=== PATIENT | male | born 1965 | race African-American/Black ===

== ENCOUNTER 2018-04-28 07:38 | Emergency (ER) | payer MEDICAID, OTHER ==
[~2018-04-28] VITALS: Ht 165.1 cm; Wt 70.3 kg
[~2018-04-28 07:38] MED LIST: ASPI-247; IBUP800T24; NORCO
[2018-04-28 08:07] VITALS: BP 141/70
[2018-04-28] MEDS ORDERED: KETOROLAC TROMETH 60MG/2ML VIAL IM ONE (08:30)
== END 2018-04-28 09:44 | disposition home or self-care (01) ==
LOC: ER 07:38
DX: G89.29 Other chronic pain (principal); M54.5 Low back pain; K21.9 Gastro-esophageal reflux disease without esophagitis; I10 Essential (primary) hypertension; I25.2 Old myocardial infarction; Z79.82 Long term (current) use of aspirin
CPT/HCPCS: 72100; 99284; J1885

== ENCOUNTER 2018-10-16 07:50 | Emergency (ER) | payer MEDICAID ==
[~2018-10-16] VITALS: Ht 162.6 cm; Wt 74.8 kg
[2018-10-16 08:47] VITALS: BP 137/73
[2018-10-16] MEDS ORDERED: cefTRIAXone SOD 1,000 MG VL IM ONE (09:30)
== END 2018-10-16 10:06 | disposition home or self-care (01) ==
LOC: ER 07:50
DX: I88.9 Nonspecific lymphadenitis, unspecified (principal); H66.91 Otitis media, unspecified, right ear; J03.90 Acute tonsillitis, unspecified; Z79.82 Long term (current) use of aspirin
CPT/HCPCS: 72040; 93005; 96372; 99283; J0696

== ENCOUNTER 2018-10-28 16:20 | Emergency (ER) | payer MEDICAID ==
[~2018-10-28] VITALS: Ht 162.6 cm; Wt 72.6 kg
[2018-10-28 16:38] VITALS: BP 145/62
== END 2018-10-28 19:23 | disposition home or self-care (01) ==
LOC: ER 16:25
DX: M62.838 Other muscle spasm (principal); I65.23 Occlusion and stenosis of bilateral carotid arteries; K21.9 Gastro-esophageal reflux disease without esophagitis; E78.5 Hyperlipidemia, unspecified; I10 Essential (primary) hypertension; I25.2 Old myocardial infarction; F12.10 Cannabis abuse, uncomplicated; Z98.61 Coronary angioplasty status; V43.52XA Car driver injured in collision with other type car in traffic accident, initial encounter; Y93.89 Activity, other specified; Y99.8 Other external cause status; Y92.410 Unspecified street and highway as the place of occurrence of the external cause
CPT/HCPCS: 70450; 72125

== ENCOUNTER 2018-11-03 07:40 | Emergency (ER) | payer MEDICAID ==
[~2018-11-03] VITALS: Ht 162.6 cm; Wt 72.6 kg
[2018-11-03 08:52] VITALS: BP 144/83
== END 2018-11-03 09:41 | disposition home or self-care (01) ==
LOC: ER 07:40
DX: I70.212 Atherosclerosis of native arteries of extremities with intermittent claudication, left leg (principal); I70.221 Atherosclerosis of native arteries of extremities with rest pain, right leg; M54.5 Low back pain; K21.9 Gastro-esophageal reflux disease without esophagitis; E78.5 Hyperlipidemia, unspecified; I10 Essential (primary) hypertension; I25.2 Old myocardial infarction; F12.90 Cannabis use, unspecified, uncomplicated; Z79.82 Long term (current) use of aspirin; Z98.61 Coronary angioplasty status; Z87.891 Personal history of nicotine dependence
CPT/HCPCS: 72100

== ENCOUNTER 2019-05-03 11:08 | Inpatient (IN) | payer MEDICAID | END 2019-05-08 13:10 | disposition home or self-care (01) | LOC: ER 11:08 → TELE 11:09 → TELE-CENTR 19:39 | PROC: 037K34Z Dilation of Right Internal Carotid Artery with Drug-eluting Intraluminal Device, Percutaneous Approach (ICD-10-PCS; principal; ~2019-05-03) | PROC: B3181ZZ Fluoroscopy of Bilateral Internal Carotid Arteries using Low Osmolar Contrast (ICD-10-PCS; ~2019-05-03) | DX: I65.21 Occlusion and stenosis of right carotid artery (principal); I63.9 Cerebral infarction, unspecified; I13.0 Hypertensive heart and chronic kidney disease with heart failure and stage 1 through stage 4 chronic kidney disease, or unspecified chronic kidney disease; I50.22 Chronic systolic (congestive) heart failure; N18.3 Chronic kidney disease, stage 3 (moderate); I48.91 Unspecified atrial fibrillation; I25.10 Atherosclerotic heart disease of native coronary artery without angina pectoris; H54.7 Unspecified visual loss; Z95.5 Presence of coronary angioplasty implant and graft; J44.9 Chronic obstructive pulmonary disease, unspecified; D63.1 Anemia in chronic kidney disease ==

== ENCOUNTER 2019-06-25 15:18 | Inpatient (IN) | payer MEDICAID ==
[~2019-06-25] VITALS: Ht 160 cm; Wt 69.5 kg
[~2019-06-25 15:18] MED LIST changes: -ASPI-247; +ASPI-404 PO; +ATOR80TA PO; +CARV12.544 PO; +CLOP75TA41 PO; +FURO20TA3 PO; -IBUP800T24; +LISI10TA6 PO; -NORCO; +POTA10TA51 PO; +TAMS0.4C36 PO
[2019-06-25 16:01] LABS: Basophils # (auto) 0 uL; Eosinophils # (auto) 0.1 uL; Lymphocytes # (auto) 2.1 uL; Monocytes # (auto) 0.4 uL; Neutrophils # (auto) 3.3 uL; Nucleated Red Blood Cells % 0.2 %
[2019-06-25 16:03] LABS: Basophils % (auto) 0.8 % (0.0-2.0); Eosinophils % (auto) 2.2 % (0.0-7.0); Hematocrit 17.9 % (41.0-53.0); Lymphocytes % (auto) 34.6 % (10.0-50.0); Mean Corpuscular Hemoglobin 23.2 pg (28.0-32.0); Mean Corpuscular Hgb Conc. 30.9 g/dL (32.0-36.0); Monocytes % (auto) 7.4 % (0.0-12.0); Platelet Count (auto) 313 10^3/uL (140-450); Red Blood Cells 2.39 10^6/uL (4.5-5.90)
[2019-06-25 16:08] LABS: Red Cell Distribution Width 22.8 % (11.8-14.3)
[2019-06-25 16:12] LABS: Albumin 3.8 g/dL (3.4-5.0); BUN/Creatinine Ratio 11.2; Calcium 8.7 mg/dL (8.5-10.1); Hemoglobin 5.5 g/dL (13.5-17.5); Potassium 4.4 mmol/L (3.5-5.1)
[2019-06-25 16:15] LABS: Bilirubin, Total 0.5 mg/dL (0.2-1.0); Total Protein 7.8 g/dL (6.4-8.2)
[2019-06-25] MEDS ORDERED: OCTREOTIDE ACETATE 100 MCG/ML VL SUBCUT ONE (19:30)
[2019-06-25] MEDS ORDERED: SODIUM CHLORIDE 0.9% 1,000 ML IV ONE (19:30)
[2019-06-25 21:03] LABS: Urine Bacteria NONE SEEN /hpf (None Seen); Urine Blood Negative /uL (Negative); Urine Mucus FEW (None Seen); Urine Specific Gravity 1.014 (1.001-1.035); Urine WBC <1 /hpf (0 - 3)
[2019-06-25 22:14] VITALS: BP 82/39
[2019-06-25 22:38] VITALS: BP 84/36
[2019-06-25 22:43] LABS: INR 1.01 (0.9-1.15)
[2019-06-26] VITALS (14 sets, daily range): BP systolic 93–125; BP diastolic 41–147
[2019-06-26] MEDS ORDERED: PANTOPRAZOLE 40 MG/10 ML VIAL INJ IV ONE (00:30)
[2019-06-26] MEDS ORDERED: ONDANSETRON HCL 4 MG/2 ML VIAL IV PRN (00:30)
[2019-06-26] MEDS ORDERED: MORPHINE SULF INJ 2 MG/ML SYRINGE 1ML IV PRN (01:00)
[2019-06-26] MEDS ORDERED: NITROGLYCERIN 0.4 MG SL TAB SL PRN (01:00)
[2019-06-26] MEDS: D5W/SOD CHLO 0.9% 1,000 ML IV SCH ×2 (01:27→13:50)
[2019-06-26] MEDS ORDERED: OCTREOTIDE ACETATE 500 MCG/ML VL ONE (01:32)
[2019-06-26] MEDS: OCTREOTIDE ACETATE 500 MCG in SODIUM CHL 0.9% 99 ML IV SCH ×3 (01:41→21:17)
--- NOTE | 2019-06-26 02:15 | NUR ---
Telemetry admit from ER JAQUELIN THOMPSON admitted to Telemetry unit after SBAR received. Patient oriented to EDDY SPARKS, primary RN, unit, room, bed, and unit policies regarding patient care and visiting hours. Patient now on continuous telemetry monitoring, tele box #[id number] and telemetry reading on arrival to unit is sinus rhythm 88 BPM. Patient placed on bedside oxygen, weighed by bedscale and encouraged to call if they need something. All questions and concerns addressed, patient verbalized understanding.
[2019-06-26] MEDS ORDERED: AMLO5TAB15 PO (02:52)
[2019-06-26] MEDS ORDERED: HYDR12.56 PO (02:52)
--- NOTE | 2019-06-26 07:10 | NUR ---
Opening Shift Note Assumed care of patient, awake and alert. No S/S of distress/SOB or pain. Instructed on POC and to call for assist PRN, will continue to monitor for changes Q1hr and PRN. Bed set in lowest locked position with side rails up x 2 for safety and call light within reach.
[2019-06-26] MEDS ORDERED: PANTOPRAZOLE 40 MG/10 ML VIAL INJ IV SCH (10:00)
[2019-06-26 10:04] LABS: Hemoglobin 10.4 g/dL (13.5-17.5)
[2019-06-26 10:05] LABS: Hematocrit 32.3 % (41.0-53.0)
--- NOTE | 2019-06-26 11:20 | NUR ---
MD at bedside Dr. Carissa JUAN updated pt on POC, pt verbalized understanding.
--- NOTE | 2019-06-26 11:40 | NUR ---
at bedside , Dr. Amaya at bedside. Updated pt on POC, all questions answered from pt.
--- NOTE | 2019-06-26 19:08 | NUR ---
Endorsed care to NOC RN.
--- NOTE | 2019-06-26 19:26 | NUR ---
Opening Shift Note Assumed care of patient, awake and alert x 4. No S/S of distress/SOB. Bed is in lowest position and locked. Call light within reach. Board updated. Tele box number matches monitor and leads are in correct placement. Instructed on POC and to call for assist PRN, will continue to monitor for changes Q1hr and PRN.
[2019-06-27] MEDS: D5W/SOD CHLO 0.9% 1,000 ML IV SCH (03:24)
[2019-06-27 05:34] VITALS: BP 104/47
[2019-06-27] MEDS: OCTREOTIDE ACETATE 500 MCG in SODIUM CHL 0.9% 99 ML IV SCH (05:51)
[2019-06-27 07:31] LABS: Basophils # (auto) 0.1 uL; Basophils % (auto) 1.2 % (0.0-2.0); Eosinophils # (auto) 0.2 uL; Eosinophils % (auto) 2.4 % (0.0-7.0); Hematocrit 31.3 % (41.0-53.0); Hemoglobin 9.9 g/dL (13.5-17.5); Lymphocytes # (auto) 1.3 uL; Lymphocytes % (auto) 19.5 % (10.0-50.0); Mean Corpuscular Hemoglobin 26.6 pg (28.0-32.0); Mean Corpuscular Hgb Conc. 31.5 g/dL (32.0-36.0); Mean Corpuscular Volume 84.4 fL (80.0-100.0); Monocytes # (auto) 0.5 uL; Monocytes % (auto) 7.8 % (0.0-12.0); Neutrophils # (auto) 4.6 uL; Neutrophils % (auto) 69.1 % (37.0-80.0); Nucleated Red Blood Cells % 0.2 %; Platelet Count (auto) 221 10^3/uL (140-450); Red Blood Cells 3.71 10^6/uL (4.5-5.90); White Blood Cell 6.6 10^3/uL (4.4-10.8)
[2019-06-27 07:34] LABS: Red Cell Distribution Width 20.7 % (11.8-14.3)
[2019-06-27 07:45] LABS: Calcium 8.3 mg/dL (8.5-10.1); Potassium 4.7 mmol/L (3.5-5.1)
[2019-06-27 07:48] LABS: BUN/Creatinine Ratio 10.5; Bilirubin, Total 1.2 mg/dL (0.2-1.0); Total Protein 6.8 g/dL (6.4-8.2)
[2019-06-27 08:30] VITALS: BP_SYST 109; BP_SYST 117; BP_DIAS 64
[2019-06-27 12:30] VITALS: BP 106/64
--- NOTE | 2019-06-27 19:15 | NUR ---
OPENING NOTE Pt is awake and alert x4. No S/S of SOB or distress at this time. Bed is locked and in lowest position. Bed rails are up x2 and call light is within reach. POC has been discussed with Pt and Pt verbalized understanding. Pt instructed to notify nurse for assistance when needed.
[2019-06-27 22:13] VITALS: BP 101/49
[2019-06-27] MEDS: PANTOPRAZOLE 40 MG TAB PO SCH (23:09)
[2019-06-28 04:54] VITALS: BP 116/65
[2019-06-28 06:24] LABS: Basophils # (auto) 0 uL; Basophils % (auto) 0.5 % (0.0-2.0); Eosinophils # (auto) 0.2 uL; Eosinophils % (auto) 2.2 % (0.0-7.0); Hematocrit 31.8 % (41.0-53.0); Hemoglobin 10.4 g/dL (13.5-17.5); Lymphocytes # (auto) 1.5 uL; Lymphocytes % (auto) 20.4 % (10.0-50.0); Mean Corpuscular Hgb Conc. 32.8 g/dL (32.0-36.0); Mean Corpuscular Volume 82.5 fL (80.0-100.0); Monocytes # (auto) 0.5 uL; Monocytes % (auto) 6.8 % (0.0-12.0); Neutrophils # (auto) 5.3 uL; Neutrophils % (auto) 70.1 % (37.0-80.0); Nucleated Red Blood Cells % 0.1 %; Platelet Count (auto) 226 10^3/uL (140-450); Red Blood Cells 3.85 10^6/uL (4.5-5.90); Red Cell Distribution Width 21.1 % (11.8-14.3); White Blood Cell 7.6 10^3/uL (4.4-10.8)
[2019-06-28 06:42] LABS: Calcium 8.5 mg/dL (8.5-10.1); Potassium 4.2 mmol/L (3.5-5.1)
[2019-06-28 06:50] LABS: BUN/Creatinine Ratio 8.9
[2019-06-28 08:30] VITALS: BP 116/64
[2019-06-28] MEDS: PANTOPRAZOLE 40 MG TAB PO SCH (08:31)
[2019-06-28 12:37] VITALS: BP 116/64
[2019-06-28 13:14] VITALS: BP 124/70
--- NOTE | 2019-06-28 13:50 | NUR ---
DISCHARGE NOTE PATIENT ALERT AND ORIENTED X4 ALL DISCHARGE INSTRUCTIONS GIVEN ALL QUESTIONS AND CONCERNS ADDRESSED/ANSWERED. PATIENT VERBALIZED UNDERSTANDING. IV REMOVED USING [employer] TECHNIQUE CATHETER INTACT PATIENT TOLERATED WELL. TELEBOX REMOVED CLEANED AND SENT TO ICU. PATIENT ASSISTED TO PERSONAL VEHICLE USING A WHEELCHAIR. PATIENT DENIES ALL PAIN, SOB OR DISTRESS.
== END 2019-06-28 13:45 | disposition home or self-care (01) | DRG 253 ==
LOC: ER 15:28 → TELE 15:29 → TELE-WESTW 06-26 02:04
PROVIDERS: ADMIT Nurse Practitioner; ATTEND Internal Medicine
PROC: 30233N1 Transfusion of Nonautologous Red Blood Cells into Peripheral Vein, Percutaneous Approach (ICD-10-PCS; principal; 2019-06-25)
DX: K92.2 Gastrointestinal hemorrhage, unspecified (principal); N17.0 Acute kidney failure with tubular necrosis; I95.9 Hypotension, unspecified; I50.22 Chronic systolic (congestive) heart failure; I48.91 Unspecified atrial fibrillation; Z86.73 Personal history of transient ischemic attack (TIA), and cerebral infarction without residual deficits; I25.10 Atherosclerotic heart disease of native coronary artery without angina pectoris; Z95.5 Presence of coronary angioplasty implant and graft; D50.0 Iron deficiency anemia secondary to blood loss (chronic); H54.61 Unqualified visual loss, right eye, normal vision left eye; I65.29 Occlusion and stenosis of unspecified carotid artery; K59.00 Constipation, unspecified; Z79.82 Long term (current) use of aspirin; Z79.899 Other long term (current) drug therapy
CPT/HCPCS: 36415; 74176; 80048; 80053; 81001; 82270; 85014; 85018; 85025; 85384; 85610; 86850; 86900; 86901; 86920; 93005; C9113; G0378; J7042

== ENCOUNTER 2019-09-27 08:13 | Emergency (ER) | payer MEDICAID ==
[~2019-09-27] VITALS: Ht 157.5 cm; Wt 78.5 kg
[~2019-09-27 08:13] MED LIST changes: +AMLO5TAB15 PO; +HYDR12.56 PO
[2019-09-27 08:23] VITALS: BP 108/42
[2019-09-27] MEDS ORDERED: HYDROcodone-ACET 10/325MG TAB PO ONE (09:15)
== END 2019-09-27 09:49 | disposition home or self-care (01) ==
LOC: ER 08:13
DX: M54.5 Low back pain (principal); I48.91 Unspecified atrial fibrillation; I13.0 Hypertensive heart and chronic kidney disease with heart failure and stage 1 through stage 4 chronic kidney disease, or unspecified chronic kidney disease; N18.9 Chronic kidney disease, unspecified; I50.9 Heart failure, unspecified; I25.10 Atherosclerotic heart disease of native coronary artery without angina pectoris; J44.9 Chronic obstructive pulmonary disease, unspecified; K21.9 Gastro-esophageal reflux disease without esophagitis; E78.5 Hyperlipidemia, unspecified; I25.2 Old myocardial infarction
CPT/HCPCS: 72100

== ENCOUNTER 2020-02-18 14:29 | Emergency (ER) | payer MEDICAID ==
[~2020-02-18] VITALS: Ht 160 cm; Wt 77.1 kg
[~2020-02-18 14:29] MED LIST changes: -ASPI-404 PO; +ASPI-543 PO; +LISI-648 PO; -LISI10TA6 PO
[2020-02-18 14:43] VITALS: BP 108/64
== END 2020-02-18 16:23 | disposition home or self-care (01) ==
LOC: ER 14:29
DX: K59.00 Constipation, unspecified (principal); L29.0 Pruritus ani; I13.0 Hypertensive heart and chronic kidney disease with heart failure and stage 1 through stage 4 chronic kidney disease, or unspecified chronic kidney disease; N18.9 Chronic kidney disease, unspecified; I50.9 Heart failure, unspecified; K21.9 Gastro-esophageal reflux disease without esophagitis; J44.9 Chronic obstructive pulmonary disease, unspecified; Z86.73 Personal history of transient ischemic attack (TIA), and cerebral infarction without residual deficits; Z98.61 Coronary angioplasty status; Z87.891 Personal history of nicotine dependence
CPT/HCPCS: 74022

== ENCOUNTER 2020-04-20 15:45 | Inpatient (IN) | payer MEDICAID ==
[2020-04-20] VITALS (8 sets, daily range): BP systolic 84–97; BP diastolic 41–70
[~2020-04-20] VITALS: Ht 160 cm; Wt 76.7 kg
[2020-04-20 16:30] LABS: Basophils # (auto) 0 10 ^3/uL (0-0.2); Eosinophils # (auto) 0.4 10 ^3/uL (0-0.8); Mean Corpuscular Hemoglobin 21.9 pg (28.0-32.0); Monocytes # (auto) 0.7 10 ^3/uL (0-1.3); Red Cell Distribution Width 19.6 % (11.8-14.3)
[2020-04-20 16:31] LABS: Basophils % (auto) 0.5 % (0.0-2.0); Eosinophils % (auto) 5.6 % (0.0-7.0); Hematocrit 19.1 % (41.0-53.0); Lymphocytes # (auto) 1.9 10 ^3/uL (0.4-5.4); Mean Corpuscular Hgb Conc. 30.8 g/dL (32.0-36.0); Monocytes % (auto) 10.4 % (0.0-12.0); Neutrophils # (auto) 3.5 10 ^3/uL (1.6-8.6); Neutrophils % (auto) 53.5 % (37.0-80.0); Nucleated Red Blood Cells % 0.2 %; Platelet Count (auto) 297 10^3/uL (140-450); Red Blood Cells 2.68 10^6/uL (4.5-5.90); White Blood Cell 6.5 10^3/uL (4.4-10.8)
[2020-04-20 16:58] LABS: Hemoglobin 5.9 g/dL (13.5-17.5)
[2020-04-20 17:00] LABS: BUN/Creatinine Ratio 10.8; Bilirubin, Total 0.5 mg/dL (0.2-1.0); Calcium 8.9 mg/dL (8.5-10.1); Potassium 4.3 mmol/L (3.5-5.1)
[2020-04-20] MEDS ORDERED: LIDO1PAD55 TOP (17:06)
[2020-04-20] MEDS ORDERED: ATOR40TA52 PO (17:06)
[2020-04-20] MEDS ORDERED: HYDR-531 (17:06)
[2020-04-20] MEDS ORDERED: FUR20T PO (17:06)
[2020-04-20] MEDS ORDERED: BACL20TA PO (17:06)
[2020-04-20] MEDS ORDERED: ASPI1TAB37 (17:06)
[2020-04-20] MEDS ORDERED: DICL1GEL50 TOP (17:06)
[2020-04-20] MEDS ORDERED: POTA1TAB64 (17:06)
[2020-04-20 17:10] LABS: Albumin 0.9 g/dL (3.4-5.0)
[2020-04-20 18:10] LABS: INR 1.03 (0.9-1.15); Partial Thromboplastin Time 24.1 sec (23.0-31.2)
[2020-04-21] VITALS (8 sets, daily range): BP systolic 81–146; BP diastolic 42–123
[2020-04-21] MEDS ORDERED: ONDANSETRON HCL 4 MG/2 ML VIAL IV PRN (05:15)
[2020-04-21] MEDS ORDERED: MORPHINE SULF INJ 2 MG/ML SYRINGE 1ML IV PRN (05:15)
[2020-04-21] MEDS ORDERED: NITROGLYCERIN 0.4 MG SL TAB SL PRN (05:15)
[2020-04-21] MEDS ORDERED: ALBUMIN 5% 250 ML IV ONE (05:15)
[2020-04-21] MEDS ORDERED: TEMAZEPAM 15 MG CAP PO PRN (05:15)
[2020-04-21] MEDS ORDERED: ACETAMINOPHEN 325 MG TAB PO PRN (05:15)
[2020-04-21 07:23] LABS: Hemoglobin 9.5 g/dL (13.5-17.5)
[2020-04-21 07:26] LABS: Hematocrit 29.6 % (41.0-53.0)
[2020-04-21] MEDS ORDERED: CLOPIDOGREL BISULFATE 75 MG TAB PO SCH (10:00)
[2020-04-21] MEDS ORDERED: PANTOPRAZOLE 40 MG TAB PO SCH (10:00)
[2020-04-21] MEDS ORDERED: ASPirin 81 mg TAB PO SCH (10:00)
[2020-04-21] MEDS ORDERED: FER325T PO (11:33)
[2020-04-21] MEDS ORDERED: ATORVASTATIN 20 MG TAB PO SCH (22:00)
== END 2020-04-21 12:19 | disposition home or self-care (01) | DRG 470 ==
LOC: ER 15:45 → TELE 15:46
PROVIDERS: ADMIT Nurse Practitioner; ATTEND Internal Medicine
PROC: 30233N1 Transfusion of Nonautologous Red Blood Cells into Peripheral Vein, Percutaneous Approach (ICD-10-PCS; principal; 2020-04-20)
DX: I12.9 Hypertensive chronic kidney disease with stage 1 through stage 4 chronic kidney disease, or unspecified chronic kidney disease (principal); E43 Unspecified severe protein-calorie malnutrition; D63.8 Anemia in other chronic diseases classified elsewhere; E78.5 Hyperlipidemia, unspecified; I25.10 Atherosclerotic heart disease of native coronary artery without angina pectoris; I73.9 Peripheral vascular disease, unspecified; N18.4 Chronic kidney disease, stage 4 (severe); Z82.49 Family history of ischemic heart disease and other diseases of the circulatory system; Z86.73 Personal history of transient ischemic attack (TIA), and cerebral infarction without residual deficits; Z87.891 Personal history of nicotine dependence; Z95.5 Presence of coronary angioplasty implant and graft; Z68.29 Body mass index [BMI] 29.0-29.9, adult
CPT/HCPCS: 36415; 71045; 80053; 82728; 85014; 85018; 85025; 85045; 85610; 85730; 86850; 86900; 86901; 86920; 96365; G0378

== ENCOUNTER 2021-09-29 12:41 | Inpatient (IN) | payer MEDICAID ==
[~2021-09-29] VITALS: Ht 160 cm; Wt 85.0 kg
[~2021-09-29 12:41] MED LIST changes: +AMLO-489 PO; -AMLO5TAB15 PO; -ASPI-543 PO; +ASPI1TAB37; +ATOR40TA52 PO; -ATOR80TA PO; +BACL20TA PO; -CLOP75TA41 PO; +CLOP75TA70 PO; +DICL1GEL50 TOP; +FER325T PO; +FUR20T PO; -FURO20TA3 PO; +HYDR-531; +LIDO1PAD55 TOP; -LISI-648 PO; +LISI-716 PO; -POTA10TA51 PO; +POTA1TAB64
[2021-09-29 13:38] LABS: Basophils # (auto) 0 10 ^3/uL (0-0.2); Eosinophils # (auto) 0.1 10 ^3/uL (0-0.8); Mean Corpuscular Volume 64.3 fL (80.0-100.0); Monocytes # (auto) 0.5 10 ^3/uL (0-1.3); Neutrophils # (auto) 3.4 10 ^3/uL (1.6-8.6); White Blood Cell 5.6 10^3/uL (4.4-10.8)
[2021-09-29 13:40] LABS: Basophils % (auto) 0.8 % (0.0-2.0); Hematocrit 17.9 % (41.0-53.0); Lymphocytes # (auto) 1.6 10 ^3/uL (0.4-5.4); Lymphocytes % (auto) 28.3 % (10.0-50.0); Mean Corpuscular Hemoglobin 18.1 pg (28.0-32.0); Mean Corpuscular Hgb Conc. 28.1 g/dL (32.0-36.0); Monocytes % (auto) 8.1 % (0.0-12.0); Neutrophils % (auto) 60.8 % (37.0-80.0); Nucleated Red Blood Cells % 0.4 %; Red Blood Cells 2.79 10^6/uL (4.5-5.90); Red Cell Distribution Width 21.8 % (11.8-14.3)
[2021-09-29 13:52] LABS: INR 1.04 (0.9-1.15); Partial Thromboplastin Time 23.4 sec (23.6-33.0)
[2021-09-29 14:15] LABS: Albumin 3.9 g/dL (3.4-5.0); Calcium 9.1 mg/dL (8.5-10.1)
[2021-09-29 14:18] LABS: BUN/Creatinine Ratio 7.1; Bilirubin, Total 1.1 mg/dL (0.2-1.0)
[2021-09-29 15:40] VITALS: BP 106/58
[2021-09-29 16:00] VITALS: BP 127/70
[2021-09-29] MEDS ORDERED: MORPHINE SULFATE INJECTION 2 MG/ML SYRG IV PRN (17:15)
[2021-09-29] MEDS ORDERED: NITROGLYCERIN 0.4 MG SL TAB SL PRN (17:15)
[2021-09-29] MEDS: SODIUM CHLORIDE 0.9% 1,000 ML IV SCH (17:15)
[2021-09-29 18:44] VITALS: BP 134/63
[2021-09-29 18:50] VITALS: BP 119/66
[2021-09-29 22:00] VITALS: BP 130/65
[2021-09-29 22:27] VITALS: BP 127/61
[2021-09-29] MEDS ORDERED: ATOR80TA PO (22:48)
[2021-09-30] MEDS: SODIUM CHLORIDE 0.9% 1,000 ML IV SCH ×2 (01:35→09:55)
[2021-09-30 04:47] VITALS: BP 176/49
[2021-09-30 05:16] LABS: Basophils # (auto) 0 10 ^3/uL (0-0.2); Eosinophils # (auto) 0.1 10 ^3/uL (0-0.8); White Blood Cell 6.7 10^3/uL (4.4-10.8)
[2021-09-30 05:21] LABS: Basophils % (auto) 0.6 % (0.0-2.0); Eosinophils % (auto) 1.7 % (0.0-7.0); Hematocrit 27.9 % (41.0-53.0); Hemoglobin 8.4 g/dL (13.5-17.5); Lymphocytes # (auto) 1.3 10 ^3/uL (0.4-5.4); Lymphocytes % (auto) 19.5 % (10.0-50.0); Mean Corpuscular Hemoglobin 21.7 pg (28.0-32.0); Mean Corpuscular Hgb Conc. 30.2 g/dL (32.0-36.0); Mean Corpuscular Volume 71.7 fL (80.0-100.0); Monocytes # (auto) 0.5 10 ^3/uL (0-1.3); Monocytes % (auto) 6.9 % (0.0-12.0); Neutrophils # (auto) 4.7 10 ^3/uL (1.6-8.6); Neutrophils % (auto) 71.3 % (37.0-80.0); Nucleated Red Blood Cells % 0.3 %
[2021-09-30 05:22] LABS: Albumin 3.5 g/dL (3.4-5.0); BUN/Creatinine Ratio 7.5; Potassium 4.3 mmol/L (3.5-5.1)
[2021-09-30 05:25] LABS: Bilirubin, Total 1.3 mg/dL (0.2-1.0); Total Protein 7.6 g/dL (6.4-8.2)
[2021-09-30 05:34] LABS: Red Cell Distribution Width 25.2 % (11.8-14.3)
[2021-09-30 09:00] VITALS: BP 152/71
[2021-09-30] MEDS: FERROUS SULFATE 325mg EC TAB PO SCH ×2 (12:29→18:16)
[2021-09-30] MEDS: amLODIPine BESYLATE 5 MG TAB PO SCH (12:30)
[2021-09-30] MEDS: CARVEDILOL 12.5 MG TAB PO SCH ×2 (12:31→22:10)
[2021-09-30] MEDS: LISINOPRIL 10 MG TAB PO SCH (12:32)
[2021-09-30 13:00] VITALS: BP 138/67
[2021-09-30 17:23] VITALS: BP 108/50
[2021-09-30] MEDS ORDERED: TAMSULOSIN HYDROCHLORIDE 0.4 MG CAP PO SCH (18:00)
[2021-09-30 22:00] VITALS: BP 112/43
[2021-09-30] MEDS ORDERED: ATORVASTATIN 20 MG TAB PO SCH (22:00)
[2021-10-01 05:00] VITALS: BP 110/42
[2021-10-01 08:45] VITALS: BP 105/58
[2021-10-01] MEDS: FERROUS SULFATE 325mg EC TAB PO SCH (11:14)
[2021-10-01] MEDS: amLODIPine BESYLATE 5 MG TAB PO SCH (11:14)
[2021-10-01] MEDS: LISINOPRIL 10 MG TAB PO SCH (11:14)
[2021-10-01] MEDS: CARVEDILOL 12.5 MG TAB PO SCH (11:15)
[2021-10-01] MEDS ORDERED: oxyCODONE ER 10 MG TAB PO PRN (11:15)
[2021-10-01 12:00] VITALS: BP 108/58
[2021-10-01 16:00] VITALS: BP 102/60
== END 2021-10-01 17:45 | disposition home or self-care (01) | DRG 663 ==
LOC: ER 12:41 → TELE 17:23 → TELE-WESTW 20:45
PROVIDERS: ADMIT Internal Medicine; ATTEND Internal Medicine
PROC: 30233N1 Transfusion of Nonautologous Red Blood Cells into Peripheral Vein, Percutaneous Approach (ICD-10-PCS; principal; 2021-09-29)
DX: D50.9 Iron deficiency anemia, unspecified (principal); E78.5 Hyperlipidemia, unspecified; I10 Essential (primary) hypertension; N40.0 Benign prostatic hyperplasia without lower urinary tract symptoms; I25.10 Atherosclerotic heart disease of native coronary artery without angina pectoris; Z20.822 Contact with and (suspected) exposure to COVID-19; I25.2 Old myocardial infarction; Z86.73 Personal history of transient ischemic attack (TIA), and cerebral infarction without residual deficits; Z87.891 Personal history of nicotine dependence; Z95.5 Presence of coronary angioplasty implant and graft
CPT/HCPCS: 36415; 36430; 74176; 80053; 85025; 85610; 85730; 86850; 86900; 86901; 86920; 87426; 93005; G0378

== ENCOUNTER 2023-08-04 13:45 | Emergency (ER) | payer MEDICARE, MEDICAID ==
[~2023-08-04] VITALS: Ht 162.6 cm; Wt 84.0 kg
[~2023-08-04 13:45] MED LIST changes: -AMLO-489 PO; +AMLO1TAB22 PO; +ASPI-628; -ASPI1TAB37; -BACL20TA PO; -CLOP75TA70 PO; -DICL1GEL50 TOP; -HYDR12.56 PO; -LISI-716 PO; +LISI10TA34 PO
[2023-08-04 14:58] LABS: Basophils # (auto) 0 10 ^3/uL (0-0.2); Basophils % (auto) 0.4 % (0.0-2.0); Eosinophils # (auto) 0.1 10 ^3/uL (0-0.8); Eosinophils % (auto) 1.9 % (0.0-7.0); Hemoglobin 12.7 g/dL (13.5-17.5); Lymphocytes # (auto) 1.4 10 ^3/uL (0.4-5.4); Lymphocytes % (auto) 26.1 % (10.0-50.0); Mean Corpuscular Hemoglobin 30.7 pg (28.0-32.0); Mean Corpuscular Hgb Conc. 32.6 g/dL (32.0-36.0); Mean Corpuscular Volume 93.9 fL (80.0-100.0); Monocytes # (auto) 0.5 10 ^3/uL (0-1.3); Monocytes % (auto) 10.1 % (0.0-12.0); Neutrophils # (auto) 3.3 10 ^3/uL (1.6-8.6); Neutrophils % (auto) 61.5 % (37.0-80.0); Nucleated Red Blood Cells % 0.1 %; Red Blood Cells 4.15 10^6/uL (4.5-5.90); Red Cell Distribution Width 14.2 % (11.8-14.3); White Blood Cell 5.4 10^3/uL (4.4-10.8)
[2023-08-04 15:14] LABS: INR 1.03 (0.9-1.15); Partial Thromboplastin Time 29.3 SEC (24.5-34.5); Prothrombin Time 10.8 sec (9.3-11.8)
[2023-08-04 15:22] LABS: Alanine Aminotransferase 16 U/L (7-40); Albumin 4.2 g/dL (3.2-4.8); Alkaline Phosphatase 97 U/L (46-116); Anion Gap 6 (5-15); Aspartate Aminotransferase 15 U/L (13-40); BUN/Creatinine Ratio 7.2 (10.0-20.0); Bilirubin, Total 0.8 mg/dL (0.2-1.0); Blood Urea Nitrogen 11 mg/dL (9-23); Calcium 9.2 mg/dL (8.7-10.4); Carbon Dioxide 26 mmol/L (20-30); Chloride 108 mmol/L (98-107); Glucose 101 mg/dL (74-106); Magnesium 2.3 mg/dL (1.6-2.6); Potassium 3.9 mmol/L (3.5-5.1); Sodium 140 mmol/L (136-145); Total Protein 7.2 g/dL (5.7-8.2)
[2023-08-04 19:26] VITALS: BP 144/77; PULSE 85; RESP 18; TEMP 98; O2SAT 98
== END 2023-08-04 19:27 | disposition home or self-care (01) ==
LOC: ER 13:45 → EDSEX 13:45 → EDBD 13:45 → ER 19:27
DX: R07.89 Other chest pain (principal); I10 Essential (primary) hypertension; I25.2 Old myocardial infarction; I25.10 Atherosclerotic heart disease of native coronary artery without angina pectoris; E78.5 Hyperlipidemia, unspecified; K21.9 Gastro-esophageal reflux disease without esophagitis; Z86.73 Personal history of transient ischemic attack (TIA), and cerebral infarction without residual deficits; Z87.891 Personal history of nicotine dependence; Z79.82 Long term (current) use of aspirin; Z79.899 Other long term (current) drug therapy
CPT/HCPCS: 36415; 71045; 80053; 83735; 83880; 84484; 85025; 85610; 85730; 93005

== ENCOUNTER → 2024-04-30 | Day surgery (SDC) | payer OTHER, MEDICAID ==
[2024-04-16 09:44] LABS: Urine Bacteria None Seen /hpf (None Seen)
[2024-04-16 09:50] LABS: Basophils # (auto) 0 10 ^3/uL (0-0.2); Basophils % (auto) 0.4 % (0.0-2.0); Eosinophils # (auto) 0.1 10 ^3/uL (0-0.8); Eosinophils % (auto) 2.2 % (0.0-7.0); Hematocrit 44.3 % (41.0-53.0); Hemoglobin 14.9 g/dL (13.5-17.5); Lymphocytes # (auto) 1.1 10 ^3/uL (0.4-5.4); Lymphocytes % (auto) 18.4 % (10.0-50.0); Mean Corpuscular Hemoglobin 31.5 pg (28.0-32.0); Mean Corpuscular Hgb Conc. 33.6 g/dL (32.0-36.0); Mean Corpuscular Volume 93.7 fL (80.0-100.0); Monocytes # (auto) 0.4 10 ^3/uL (0-1.3); Monocytes % (auto) 6.9 % (0.0-12.0); Neutrophils # (auto) 4.4 10 ^3/uL (1.6-8.6); Neutrophils % (auto) 72.1 % (37.0-80.0); Nucleated Red Blood Cells % 0.1 %; Platelet Count (auto) 158 10^3/uL (140-450); Red Blood Cells 4.73 10^6/uL (4.5-5.90); Red Cell Distribution Width 14.4 % (11.8-14.3); White Blood Cell 6.2 10^3/uL (4.4-10.8)
[2024-04-16 09:51] LABS: Urine Blood Negative /uL (Negative); Urine Clarity Clear (Clear); Urine Color Colorless (Yellow); Urine Protein, UAD Negative (Negative); Urine Specific Gravity 1.005 (1.001-1.035); Urine Urobilinogen Normal (Negative); Urine WBC 1 /hpf (0 - 3)
[2024-04-16 10:04] LABS: INR 0.98 (0.9-1.15); Partial Thromboplastin Time 31.3 SEC (24.5-34.5); Prothrombin Time 10.4 sec (9.3-11.8)
[2024-04-16 10:37] LABS: Alanine Aminotransferase 27 U/L (7-40); Alkaline Phosphatase 105 U/L (46-116); Anion Gap 6 (5-15); Aspartate Aminotransferase 18 U/L (13-40); BUN/Creatinine Ratio 5.9 (10.0-20.0); Blood Urea Nitrogen 8 mg/dL (9-23); Calcium 10.3 mg/dL (8.7-10.4); Carbon Dioxide 25 mmol/L (20-30); Chloride 108 mmol/L (98-107); Glucose 106 mg/dL (74-106); Potassium 4.5 mmol/L (3.5-5.1); Sodium 139 mmol/L (136-145)
[2024-04-16 10:38] LABS: Albumin 4.7 g/dL (3.2-4.8); Bilirubin, Total 1.3 mg/dL (0.2-1.0); Total Protein 8.3 g/dL (5.7-8.2)
[2024-04-28 09:39] LABS: Urine Bacteria None Seen /hpf (None Seen)
[2024-04-28 09:59] LABS: Urine Blood Negative /uL (Negative); Urine Clarity Clear (Clear); Urine Color Colorless (Yellow); Urine Protein, UAD Negative (Negative); Urine Specific Gravity 1.009 (1.001-1.035); Urine Urobilinogen Normal (Negative); Urine WBC 1 /hpf (0 - 3)
[2024-04-28 10:00] LABS: Basophils # (auto) 0.1 10 ^3/uL (0-0.2); Basophils % (auto) 0.9 % (0.0-2.0); Eosinophils # (auto) 0.1 10 ^3/uL (0-0.8); Hematocrit 44.9 % (41.0-53.0); Hemoglobin 15.3 g/dL (13.5-17.5); Lymphocytes # (auto) 1.8 10 ^3/uL (0.4-5.4); Lymphocytes % (auto) 26.1 % (10.0-50.0); Mean Corpuscular Hemoglobin 32.1 pg (28.0-32.0); Mean Corpuscular Hgb Conc. 34.2 g/dL (32.0-36.0); Mean Corpuscular Volume 93.8 fL (80.0-100.0); Monocytes # (auto) 0.5 10 ^3/uL (0-1.3); Monocytes % (auto) 6.7 % (0.0-12.0); Neutrophils # (auto) 4.5 10 ^3/uL (1.6-8.6); Neutrophils % (auto) 64.3 % (37.0-80.0); Nucleated Red Blood Cells % 0.1 %; Platelet Count (auto) 173 10^3/uL (140-450); Red Blood Cells 4.78 10^6/uL (4.5-5.90); Red Cell Distribution Width 14.9 % (11.8-14.3)
[2024-04-28 10:20] LABS: Prothrombin Time 10.6 sec (9.3-11.8)
[2024-04-28 10:50] LABS: Alanine Aminotransferase 28 U/L (7-40); Alkaline Phosphatase 103 U/L (46-116); Anion Gap 8 (5-15); Aspartate Aminotransferase 18 U/L (13-40); BUN/Creatinine Ratio 8.8 (10.0-20.0); Bilirubin, Total 0.9 mg/dL (0.2-1.0); Blood Urea Nitrogen 13 mg/dL (9-23); Calcium 10.5 mg/dL (8.7-10.4); Carbon Dioxide 25 mmol/L (20-30); Chloride 106 mmol/L (98-107); Glucose 104 mg/dL (74-106); Potassium 4.6 mmol/L (3.5-5.1); Sodium 139 mmol/L (136-145); Total Protein 8.4 g/dL (5.7-8.2)
[~2024-04-30] VITALS: Ht 165.1 cm; Wt 85.7 kg
[~2024-04-30] MED LIST changes: +ATOR-47 PO; -ATOR40TA52 PO; +CALC1CAP31 PO; +CILO50TA2 PO; +CIPROFLOXACIN 400MG/200ML 200 ML IV ONE; +CLOP75TA28 PO; +DAPA1TAB4 PO; +DexAMETHasone SOD PHOS 10MG/1ML VIAL INJ ONE; -FER325T PO; +FERR1TAB17 PO; -FUR20T PO; +FURO20TA4 PO; +GLYCOPYRROLATE 0.2 MG/ML 1ML VIAL ONE; +KETAMINE 50mg/ML 1ml syringe ONE; -LIDO1PAD55 TOP; +LIDOCAINE 2% (LOCAL ANESTH.) PF 5ml SDV ONE; -LISI10TA34 PO; +LORA-622 PO; +MIDAZOLAM HCL 2MG/2ML 2ml VIAL (1mg/ml) ONE; +ONDANSETRON HCL 4 MG/2 ML VIAL ONE; +PANT40TA2 PO; -POTA1TAB64; +PROPOFOL 10 MG/ML 20 ML IV ONE; -TAMS0.4C36 PO; +TAMS0.4C39 PO; +ePHEDrine SULFATE 50 MG/ML AMP ONE; +fentaNYL CITRATE 100 MCG/2 ML VL IV PRN; +fentaNYL CITRATE 100 MCG/2 ML VL ONE
[2024-04-30 07:53] VITALS: TEMP 97.1; O2SAT 100
[2024-04-30 09:28] VITALS: BP 126/63; PULSE 79; RESP 20; O2SAT 95
== END | disposition home or self-care (01) ==
LOC: SUR 04-21 05:57
PROVIDERS: ATTEND Urology
DX: R97.20 Elevated prostate specific antigen [PSA] (principal); Z53.8 Procedure and treatment not carried out for other reasons; I50.9 Heart failure, unspecified; E11.9 Type 2 diabetes mellitus without complications; J44.9 Chronic obstructive pulmonary disease, unspecified; Z79.899 Other long term (current) drug therapy; Z86.2 Personal history of diseases of the blood and blood-forming organs and certain disorders involving the immune mechanism; Z95.1 Presence of aortocoronary bypass graft; Z95.5 Presence of coronary angioplasty implant and graft; Z98.890 Other specified postprocedural states; Z87.891 Personal history of nicotine dependence; Z80.9 Family history of malignant neoplasm, unspecified; Z81.1 Family history of alcohol abuse and dependence
CPT/HCPCS: 36415; 80053; 81001; 85025; 85610; 85730; 87086; J0744; J1100; J2001; J2250; J2405; J2704